=== PATIENT | female | born 1995 | race Caucasian/White ===

== ENCOUNTER 2022-10-29 09:45 | Outpatient (CLI) | payer OTHER, SELFPAY ==
[2022-10-29 11:15] LABS: HIV 1/2 Ab P24 Ag Result Negative (Negative)
[2022-10-29 11:33] LABS: Hepatitis B Surface Antigen Negative (Negative)
[2022-10-29 11:50] LABS: Hepatitis C Virus Antibody Negative (Negative)
[2022-10-30 07:20] LABS: Rapid Plasma Reagin Non-Reactive (NonReactive)
[2022-11-02 10:01] LABS: HSV 1 IgM Screen Negative (Negative); HSV 2 IgM Screen Negative (Negative)
== END 2022-10-29 09:46 | disposition home or self-care (01) ==
LOC: ANHLAB 09:46
PROVIDERS: PCP Registered Nurse; Visit Provider Registered Nurse
DX: Z11.3 Encounter for screening for infections with a predominantly sexual mode of transmission (principal)
CPT/HCPCS: 36415; 86592; 86695; 86696; 86703; 86803; 87340; G0432